=== PATIENT | female | born 1980 | race Caucasian/White ===

== ENCOUNTER 2017-01-09 07:13 | Day surgery (SDC) | payer BC ==
[~2017-01-09 07:13] MED LIST: LIDOCAINE HCL 1% MPF SOL ONE; PROPOFOL 500 MG/50 ML EMU IV ONE
[2017-01-09 07:38] VITALS: BP 102/61; PULSE 65; RESP 16; TEMP 98.7; O2SAT 100
== END 2017-01-09 09:45 | disposition home or self-care (01) ==
LOC: SURG 07:13
PROVIDERS: ATTEND Internal Medicine Gastroenterology
DX: R10.11 Right upper quadrant pain (principal)
CPT/HCPCS: 43235; J2001; J2704

== ENCOUNTER 2018-06-18 08:24 | Day surgery (SDC) | payer OTHER ==
[~2018-06-18 08:24] MED LIST changes: +LIDOCAINE HCL 1% MPF 30 SOL ONE; -LIDOCAINE HCL 1% MPF SOL ONE
[2018-06-18 11:43] VITALS: BP 105/61; PULSE 61; RESP 18; TEMP 96.7; O2SAT 100
== END 2018-06-18 12:08 | disposition home or self-care (01) | DRG 392 ==
LOC: SURG 08:24
PROVIDERS: ATTEND Internal Medicine Gastroenterology
DX: R10.11 Right upper quadrant pain (principal); K64.8 Other hemorrhoids; K31.84 Gastroparesis; R68.81 Early satiety; R11.0 Nausea; L53.8 Other specified erythematous conditions; K44.9 Diaphragmatic hernia without obstruction or gangrene; K31.9 Disease of stomach and duodenum, unspecified; K59.00 Constipation, unspecified
CPT/HCPCS: 99001; J2001; J2704